=== PATIENT | female | born 1965 | race Caucasian/White ===

== ENCOUNTER 2019-07-07 06:14 | Day surgery (SDC) | payer OTHER ==
[2019-07-07] MEDS ORDERED: POLYMYXIN/BACITRACIN 1L IRRIG (07:40)
[2019-07-07] MEDS ORDERED: LIDOCAINE 2% (MDV) 20 ML INJ (07:40)
[2019-07-07] MEDS ORDERED: BUPIVACAINE 0.25% (MPF) 30 ML INJ (07:40)
[2019-07-07] MEDS ORDERED: BETAMET NA PHOS/AC(6 MG/ML) 5ML INJ (07:40)
[2019-07-07] MEDS ORDERED: NEOMYC/POLYMYX/BACIT 30 GM OINT (07:46)
[2019-07-07] MEDS ORDERED: MEPERIDINE 100 MG INJ (08:03)
[2019-07-07] MEDS ORDERED: PROPOFOL 20 ML (08:03)
[2019-07-07] MEDS ORDERED: LIDOCAINE 2% (SDV) 5 ML INJ (08:03)
[2019-07-07] MEDS ORDERED: CEFAZOLIN 1 GM INJ (08:32)
[2019-07-07] MEDS ORDERED: MIDAZOLAM 1 MG/ML 2 ML INJ ×2 (08:32→08:55)
[2019-07-07] MEDS: ROPIVACAINE 0.5 % 30 ML VIAL (08:57)
[2019-07-07] MEDS ORDERED: DIPHENHYDRAMINE 50 MG INJ IV (09:30)
[2019-07-07] MEDS ORDERED: OXYCODONE/ACETAMINOPHEN (5/325) TAB PO ×2 (09:30)
[2019-07-07] MEDS ORDERED: METOCLOPRAMIDE 10 MG INJ IV (09:30)
[2019-07-07] MEDS ORDERED: HYDROmorphONE 1 MG/5 ML IV SYRINGE IV (09:30)
[2019-07-07] MEDS ORDERED: EPHEDrine 25 MG/5 ML SYG IV (09:30)
[2019-07-07] MEDS ORDERED: LABETALOL HCL 20MG INJ IV (09:30)
[2019-07-07] MEDS ORDERED: MIDAZOLAM 1 MG/ML 2 ML INJ IV (09:30)
[2019-07-07] MEDS ORDERED: hydrALAzine 20 MG INJ IV (09:30)
[2019-07-07] MEDS: ONDANSETRON 4 MG INJ IV (09:40)
[2019-07-07] MEDS: MEPERIDINE 25 MG INJ IV (09:40)
[2019-07-07] MEDS: HYDROmorphONE 1 MG/5 ML IV SYRINGE IV ×2 (09:43→09:57)
== END 2019-07-07 11:43 | disposition home or self-care (01) ==
LOC: SDS 06:14
DX: G56.01 Carpal tunnel syndrome, right upper limb (principal); M65.4 Radial styloid tenosynovitis [de Quervain]; E11.9 Type 2 diabetes mellitus without complications; Z79.84 Long term (current) use of oral hypoglycemic drugs
CPT/HCPCS: 25000; 82962; 88304